=== PATIENT | female | born 1995 | race Caucasian/White ===

== ENCOUNTER 2017-12-24 12:03 | Emergency (ER) | payer OTHER ==
[~2017-12-24] VITALS: Ht 154.9 cm; Wt 50.8 kg
[2017-12-24 12:11] VITALS: Ht 154.9 cm; Wt 50.8 kg
[2017-12-24 13:54] VITALS: BP 124/73
== END 2017-12-24 13:54 | disposition home or self-care (01) ==
LOC: ED 12:03
DX: S61.210A Laceration without foreign body of right index finger without damage to nail, initial encounter (principal); W26.8XXA Contact with other sharp object(s), not elsewhere classified, initial encounter; Y93.89 Activity, other specified; Y92.89 Other specified places as the place of occurrence of the external cause; Y99.8 Other external cause status
CPT/HCPCS: 90715; A4570